=== PATIENT | female | born 1955 | race Caucasian/White ===

== ENCOUNTER → 2017-04-14 | Outpatient (CLI) | payer OTHER ==
--- NOTE | ~2017-04-14 | MY11 ---
[facility] A Service of [facility] RADIOLOGY TEXT RESULTS PATIENT: TIFFANY BRADFORD LOCATION: [facility] : 51 UNIT #: [id number] AGE: [address]: Sharita George SEX: F ORDER DR: [id number] [place] [id number] O MR#: [id number] Acc #: [id number] NAME: TIFFANY BRADFORD : 1955 SEX: F STUDY DATE/TIME: 04/14/2017 10:18 UNIT: [facility] ROOM: STUDY DESCRIPTION: MY Mammogram Screening Dig Michael Attending Physician: Sharita George A.P.R.N. Referring Physician: Sharita George A.P.R.N. Ordering Physician: Sharita George A.P.R.N. Primary Care Physician: Doretha Montero A.P.R.N. MEDICAL IMAGING REPORT This report is preliminary unless electronic signature is present. EXAM Digital screening mammogram with CAD INDICATIONS Routine screening PROCEDURE Bilateral CC and MLO views obtained on a digital mammography unit. FDA-approved CAD device utilized. COMPARISON 03/29/2016 FINDINGS Breasts are predominantly fat replaced. There is no dominant mass or suspicious calcification. IMPRESSION Negative screening mammogram; screening interval of 1 year suggested. Patients over the age of 40 are entered into a reminder system with target due date for the next mammogram. A result letter will also be sent to the patient. BIRADS: 1 Negative Dictated by... Shravan Dawson M.D. THIS IS AN ELECTRONICALLY VERIFIED REPORT Shravan Dawson M.D. at 04/15/2017 7:12 AM [facility] A Service [facility] RADIOLOGY TEXT RESULTS PATIENT: TIFFANY BRADFORD LOCATION: [facility] : 51 UNIT #: [id number] AGE: [address]: Sharita George SEX: F ORDER DR: Derian TD: 04/14/2017 19:13 JOB #: [id number] MEDICAL IMAGING REPORT Page 1 of 1
== END | disposition home or self-care (01) ==
LOC: SMAM 09:20
DX: Z12.31 Encounter for screening mammogram for malignant neoplasm of breast (principal)
CPT/HCPCS: G0202